=== PATIENT | female | born 1970 | race Two or more races ===

== ENCOUNTER 2024-12-23 09:30 | Inpatient (IN) | payer OTHER ==
[~2024-12-23] VITALS: Ht 152.4 cm; Wt 78.9 kg
[2024-12-28] MEDS ORDERED: METRONIDAZOLE/SODIUM CHLORIDE 500 MG/100 ML PIGGYBACK IV ONE (06:54)
[2024-12-28] MEDS ORDERED: CEFTRIAXONE SODIUM 2,000 MG VIAL ONE (06:54)
[2024-12-28] MEDS ORDERED: BUPIVACAINE HCL/MPF 0.5% 30ML VIAL ONE (07:02)
[2024-12-28] MEDS ORDERED: LIDOCAINE HCL 1%/EPINEPHRINE 20ML VIAL IJ ONE (07:02)
[2024-12-28] MEDS ORDERED: MORPHINE SULFATE 4 MG/ML CARTRIDGE IV PRN (09:30)
[2024-12-28] MEDS ORDERED: ONDANSETRON HCL 2 MG/ML VIAL IV PRN (09:30)
[2024-12-28] MEDS ORDERED: OxyCODONE HCL 5 MG TABLET (ROXICODONE) PO PRN (09:30)
[2024-12-28] MEDS ORDERED: DEXTROSE 50 % IN WATER 0.5 G/ML VIAL IV PRN (09:30)
[2024-12-28] MEDS ORDERED: RINGERS SOLUTION,LACTATED 1,000 ML IV SCH (09:30)
[2024-12-28] MEDS ORDERED: MORPHINE SULFATE 2 MG/ML CARTRIDGE IV ONE (10:10)
[2024-12-28] MEDS ORDERED: MORPHINE SULFATE 4 MG/ML VIAL IV ONE ×2 (10:40→11:40)
[2024-12-28 12:52] LABS: BASO % 0.2 % (0.1-1.2); EOS # 0.01 (0.04-0.54); EOS % 0.1 % (0.7-7.0); HEMOGLOBIN 10.4 g/dL (11.2-15.7); MEAN CORPUSCULAR HEMOGLOBIN 25.4 pg (25.6-32.2); MONO # 0.54 (0.24-0.82); MONO % 4.1 % (4.7-12.5); NEUT # 11.85 (1.56-6.13); NEUT % 89.3 % (34.0-71.1); PLATELET COUNT 380 K/uL (163-369); RED BLOOD COUNT 4.09 M/uL (3.93-5.22); RED CELL DISTRIBUTION WIDTH 14.3 % (11.6-14.4)
[2024-12-28] MEDS ORDERED: HYOSCYAMINE SULFATE 0.125 MG TAB.SUBL SL SCH (13:00)
[2024-12-28 13:30] LABS: ALBUMIN 2.8 gm/dL (3.4-5.0); CALCIUM 8.6 mg/dL (8.5-10.1); CREATININE SERUM 0.59 mg/dL (0.55-1.02); GFR 107.03; MAGNESIUM 1.6 mg/dL (1.8-2.4); PHOSPHOROUS 4.1 mg/dL (2.5-4.9); POTASSIUM 4.38 mEq/L (3.5-5.1)
[2024-12-28] MEDS ORDERED: ACETAMINOPHEN 500 MG GEL..CAP PO SCH (14:00)
[2024-12-28 16:00] VITALS: BP 149/82; O2SAT 95
[2024-12-28] MEDS ORDERED: GABAPENTIN 300 MG CAPSULE PO SCH (17:00)
[2024-12-28] MEDS ORDERED: FAMOTIDINE/PF 20 MG/2 ML VIAL IV PUSH SCH (21:00)
[2024-12-29 01:44] VITALS: BP 137/84; O2SAT 98
[2024-12-29 07:40] LABS: BASO % 0.2 % (0.1-1.2); HEMATOCRIT 32.3 % (34.1-44.9); HEMOGLOBIN 9.8 g/dL (11.2-15.7); LYMPH # 1.13 (1.18-3.74); LYMPH % 9.1 % (19.3-53.1); MEAN CORPUSCULAR HEMOGLOBIN 25.1 pg (25.6-32.2); MONO # 0.52 (0.24-0.82); MONO % 4.2 % (4.7-12.5); NEUT # 10.73 (1.56-6.13); NEUT % 86.1 % (34.0-71.1); PLATELET COUNT 382 K/uL (163-369); RED BLOOD COUNT 3.91 M/uL (3.93-5.22); RED CELL DISTRIBUTION WIDTH 14.5 % (11.6-14.4)
[2024-12-29 08:00] VITALS: BP 116/82; O2SAT 95
[2024-12-29 08:12] LABS: ALBUMIN 2.6 gm/dL (3.4-5.0); CALCIUM 8.5 mg/dL (8.5-10.1); CREATININE SERUM 0.56 mg/dL (0.55-1.02); GFR 113.68; MAGNESIUM 1.8 mg/dL (1.8-2.4); PHOSPHOROUS 3.5 mg/dL (2.5-4.9); POTASSIUM 4.25 mEq/L (3.5-5.1)
[2024-12-29] MEDS ORDERED: Cyanocobalamin/Mecobalamin 1 TAB.SL SL NR (10:45)
[2024-12-29] MEDS ORDERED: SOD FERRIC GLUC COMPLX/SUCROSE 62.5 MG in 0.9 % SODIUM CHLORIDE 50 ML IV SCH (12:00)
[2024-12-29 16:00] VITALS: BP 123/79; O2SAT 96
[2024-12-29] MEDS ORDERED: ENOXAPARIN SODIUM 40 MG/0.4 ML SYRINGE SUBCUTANEO SCH (17:00)
[2024-12-30 01:24] VITALS: BP 136/83; O2SAT 99
[2024-12-30 08:00] LABS: BASO % 0.1 % (0.1-1.2); EOS # 0.08 (0.04-0.54); EOS % 0.8 % (0.7-7.0); HEMATOCRIT 27.5 % (34.1-44.9); LYMPH # 1.06 (1.18-3.74); LYMPH % 10.1 % (19.3-53.1); MEAN CORPUSCULAR HEMOGLOBIN 24.9 pg (25.6-32.2); MONO # 0.34 (0.24-0.82); MONO % 3.2 % (4.7-12.5); NEUT # 8.98 (1.56-6.13); NEUT % 85.1 % (34.0-71.1); PLATELET COUNT 362 K/uL (163-369); RED BLOOD COUNT 3.38 M/uL (3.93-5.22); RED CELL DISTRIBUTION WIDTH 14.5 % (11.6-14.4)
[2024-12-30 08:03] LABS: HEMOGLOBIN 8.4 g/dL (11.2-15.7)
[2024-12-30 08:29] VITALS: BP 142/81; O2SAT 95
[2024-12-30 08:36] LABS: CALCIUM 8.1 mg/dL (8.5-10.1); CREATININE SERUM 0.56 mg/dL (0.55-1.02); GFR 113.68; MAGNESIUM 1.6 mg/dL (1.8-2.4); PHOSPHOROUS 2.2 mg/dL (2.5-4.9); POTASSIUM 3.95 mEq/L (3.5-5.1)
[2024-12-30] MEDS ORDERED: Cyanocobalamin/Mecobalamin 1 TAB.SL SL SCH (09:00)
[2024-12-30] MEDS ORDERED: ENOXAPARIN SODIUM 40 MG/0.4 ML SYRINGE SUBCUTANEO SCH (09:00)
[2024-12-30] MEDS ORDERED: POTASSIUM PHOS,M-BASIC-D-BASIC 3 MM/ML VIAL IV NR (09:45)
[2024-12-30] MEDS ORDERED: MAGNESIUM SULFATE IN WATER 50 ML IV NR (09:50)
[2024-12-30] MEDS ORDERED: MENTHOL/CETYLPYRD CL 1 LOZENGE MM SCH (13:00)
[2024-12-30 16:40] VITALS: BP 126/80; O2SAT 100
[2024-12-30] MEDS ORDERED: FAMOtidine 20 MG TABLET PO SCH (21:00)
[2024-12-31 01:52] VITALS: BP 109/70; O2SAT 97
[2024-12-31 07:27] LABS: BASO % 0.2 % (0.1-1.2); EOS # 0.18 (0.04-0.54); EOS % 3.3 % (0.7-7.0); LYMPH # 1.05 (1.18-3.74); MONO # 0.38 (0.24-0.82); MONO % 6.9 % (4.7-12.5); NEUT # 3.88 (1.56-6.13); NEUT % 70.1 % (34.0-71.1); PLATELET COUNT 346 K/uL (163-369); RED BLOOD COUNT 3.12 M/uL (3.93-5.22); RED CELL DISTRIBUTION WIDTH 14.6 % (11.6-14.4)
[2024-12-31 07:42] LABS: HEMATOCRIT 25.8 % (34.1-44.9); HEMOGLOBIN 7.8 g/dL (11.2-15.7)
[2024-12-31 08:00] VITALS: BP 136/80; O2SAT 98
[2024-12-31 08:15] LABS: CREATININE SERUM 0.42 mg/dL (0.55-1.02); GFR 158.44; POTASSIUM 4.28 mEq/L (3.5-5.1)
[2024-12-31] MEDS ORDERED: MAGNESIUM SULFATE IN WATER 50 ML IV ONE (08:15)
[2024-12-31] MEDS ORDERED: POTASSIUM PHOS,M-BASIC-D-BASIC 3 MM/ML VIAL IV ONE (08:15)
[2024-12-31] MEDS ORDERED: FUROsemide 20 MG/2 ML VIAL IV SCH (08:15)
[2024-12-31 17:03] VITALS: BP 133/81; O2SAT 95
[2025-01-01 02:13] VITALS: BP 131/74; O2SAT 98
[2025-01-01 08:00] VITALS: BP 141/81; O2SAT 96
[2025-01-01 17:33] VITALS: BP 121/77; O2SAT 96
[2025-01-01 21:38] LABS: BASO % 0.6 % (0.1-1.2); EOS # 0.16 (0.04-0.54); EOS % 3.2 % (0.7-7.0); HEMATOCRIT 37.4 % (34.1-44.9); HEMOGLOBIN 11.8 g/dL (11.2-15.7); LYMPH % 26.3 % (19.3-53.1); MEAN CORPUSCULAR HEMOGLOBIN 25.7 pg (25.6-32.2); MONO # 0.43 (0.24-0.82); MONO % 8.7 % (4.7-12.5); NEUT # 2.97 (1.56-6.13); PLATELET COUNT 341 K/uL (163-369); RED CELL DISTRIBUTION WIDTH 14.7 % (11.6-14.4)
[2025-01-02 02:08] VITALS: BP 137/70; O2SAT 100
[2025-01-02 08:00] VITALS: BP 145/81; O2SAT 94
[2025-01-02] MEDS ORDERED: NEURONTIN300 MG PO (13:37)
[2025-01-02] MEDS ORDERED: INTEGRA F CAPS1 EACH PO (13:37)
[2025-01-02] MEDS ORDERED: TYLENOL ARTHRI650 MG PO (13:37)
== END 2025-01-02 21:34 | disposition home or self-care (01) | DRG 330 ==
LOC: O/R 12-28 05:17 → SURH 12-28 05:17
PROVIDERS: Internal Medicine Geriatric Medicine; Surgery; ADMIT Surgery; ATTEND Surgery
PROC: 07BB4ZZ Excision of Mesenteric Lymphatic, Percutaneous Endoscopic Approach (ICD-10-PCS; 2024-12-28)
PROC: 0DTF4ZZ Resection of Right Large Intestine, Percutaneous Endoscopic Approach (ICD-10-PCS; principal; 2024-12-28 07:00)
PROC: 30233N1 Transfusion of Nonautologous Red Blood Cells into Peripheral Vein, Percutaneous Approach (ICD-10-PCS; 2025-01-01)
DX: C18.2 Malignant neoplasm of ascending colon (principal); K62.5 Hemorrhage of anus and rectum; R59.0 Localized enlarged lymph nodes; R10.9 Unspecified abdominal pain; D50.0 Iron deficiency anemia secondary to blood loss (chronic)